=== PATIENT | female | born 2000 | race Two or more races ===

== ENCOUNTER 2025-03-13 17:56 | Emergency (ER) | payer MEDICAID, SELFPAY ==
[2025-03-13 19:06] VITALS: BP 105/68; PULSE 67; RESP 18; TEMP 37.1; O2SAT 99; BMI 33.5
--- NOTE | 2025-03-13 19:11 | XR_ITS ---
Examination: Complete OB ultrasound, less than 14 weeks, transabdominal Date and time of exam: March 13, 2025, 1929 hours INDICATIONS: Vaginal bleeding beginning 1 day ago Technique: Obstetrical ultrasound images less than 14 weeks performed via transabdominal imaging Findings: A normal shaped single intrauterine gestation is present in the uterus. CRL 0.7 cm corresponds to 6 weeks 4 days gestational age Cardiac motion 123 bpm Ultrasonographic survey of visible and placental structures unremarkable. Amniotic fluid volume appears appropriate for this estimated gestational age. Right ovary 5.5 cm arterial flow 4.3 cm cyst Left ovary 3.2 cm arterial flow IMPRESSION: Viable intrauterine gestation 6 weeks 4 days.
--- NOTE | 2025-03-13 19:16 | EDNOTE_ITS ---
ED Female Urogenital RME/HPI General Chief complaint: Urogenital-Female Stated complaint: VAGINAL BLEEDING, + PREG Time Seen by Provider: 03/13/25 19:04 Arrival date/time: 03/13/25 17:56 25-year-old female G2, P1 approximately 8 weeks gestation reports with complaints of vaginal bleeding x 1 day. Patient denies any dysuria urinary urgency or frequency fever chills nausea vomiting or trauma. Patient states that she has not been evaluated by APPRENTICE [facility]ERAL DIRECTOR as of yet. Patient reports last the child was born full-term but with multiple complications Limitations: no limitations Related Data Allergies Allergy/AdvReac Type Severity Reaction Status Date / Time No Known Allergies Allergy Verified 03/13/25 17:58 Review of Systems Constitutional Constitutional: Denies chills, Denies fever(s) and Denies headache(s) ENT Ears, Nose, Mouth, and Throat: Denies dizziness and Denies headache(s) Gastrointestinal Gastrointestinal: Denies nausea and Denies vomiting Genitourinary Genitourinary: Reports abnormal vaginal bleeding, Denies difficulty voiding and Denies dysuria Musculoskeletal Musculoskeletal: Denies back pain and Denies myalgias Integumentary/Breasts Skin/Breast: Denies rash and Denies unusual bruising Neurologic Neurologic: Denies dizziness and Denies headache(s) Past Medical History Social History SMOKING STATUS: Never smoker ED Exam General Limitations: Present no limitations General appearance: Present alert and in no apparent distress Abdominal Exam Abdominal exam: Present soft and normal bowel sounds External exam: Present normal external exam; Absent erythema Speculum exam: Present normal speculum exam, vaginal discharge (Scant clear discharge) and vaginal bleeding (Scant) Bimanual exam: Present normal bimanual exam; Absent cervical motion tenderness, adnexal tenderness or adnexal mass Extremities Exam Extremities exam: Present normal inspection and full ROM Back Exam Back exam: Present normal inspection and full ROM Neurological Exam Neurological exam: Present alert, oriented X3 and CN II-XII intact Psychiatric Psychiatric exam: Present normal affect and normal mood Skin Skin exam: Present warm, dry, intact and normal color Course Course Course Narrative: 25-year-old female, , approximately 6 weeks gestation, presents with vaginal bleeding. An ultrasound confirms a viable intrauterine at 6 weeks and 4 days, and her beta-hCG level is over 7,000. A urine analysis shows possible evidence of acute cystitis; however, the patient is asymptomatic, and the urine sample may have been contaminated due to collection technique. Therefore, I will not initiate treatment for acute cystitis at this time. The patient has been informed, and a urine culture is pending. If the culture is positive, she will be notified and treatment will begin. She has been advised to follow up with her primary care provider or [facility] as needed, or if symptoms arise. Quality Measures none Orders Category Date Time Status Pelvic Exam X1 Care 03/13/25 19:11 Active US OB <= 14 weeks fetus Stat Exams 03/13/25 19:11 Completed Bacterial Vaginal Panel Stat Lab 03/13/25 20:13 Received Beta HCG,Quantitative Stat Lab 03/13/25 19:56 Completed Chlamydia/GC/TV - PCR Stat Lab 03/13/25 21:17 Received UA, C/S IF [Urinalysis, C/S if Indicated] Stat Lab 03/13/25 21:17 Completed Urine Culture Stat Lab 03/13/25 21:17 Received Vital Signs Vital signs: Vital Signs Temperature 98.8 F 03/13/25 19:06 Pulse Rate 67 03/13/25 19:06 Respiratory Rate 18 03/13/25 19:06 Blood Pressure 105/68 03/13/25 19:06 Pulse Oximetry (%) 99 03/13/25 19:06 Oxygen Delivery Method Room Air 03/13/25 19:06 Urogenital - Female Patient data External records reviewed:: None Clinical information provided by:: patient Social determinants that could affect healthcare access:: none Patient has the following chronic illnesses:: none How is presenting disease/condition affected by chronic disease/condition?: no chronic disease Evaluation data The following diagnostics were reviewed and interpreted by me:: lab results and radiology exam(s) Lab and/or radiology exams considered but not ordered:: none Interpretation Summary: Viable intrauterine of 6-week 4-day gestation Medications / Prescriptions Medications or Prescriptions considered but not ordered:: none Medication administrations:: none Consultations Consultation(s) initiated? (list below): No Diagnosis Urogenital Female Differential Diagnosis: other (Threatened versus implantation versus infection) Most likely diagnosis given after review of the tests above:: Implantation of bleeding Admission Indicated Admission indicated?: not indicated Admission Request Was there a request for admission?: No Disposition Plan Disposition Plan: Discharge Discharge Attestation Discharge Attestation: The patient and all family members were given an opportunity to ask questions and understood the discharge instructions. Discharge instructions specifically effects, indications for sooner follow up or return to the emergency department, and the expected course of current diagnosis. Patient condition: Stable Discharge Plan Plan Patient Disposition: HOME (Self Care) Prescriptions/Referrals Referrals: Joaquin Carter MD [Primary Care Provider, Family Practice] - In 1 week Problem List Clinical Impression: Vaginal bleeding during Patient/Caregiver Discharge Instructions Discharge Activity: activity as tolerated Education Materials: Bleeding During Early Additional Instructions: Follow-up with your APPRENTICE FUNERAL DIRECTOR in 24 to 48 hours for repeat blood labs Print Language: English Stand Alone Forms: [employer]ra Award Info., Patient Portal Info Letter
[2025-03-13 21:26] LABS: Collection Type, Urine Clean Catch
[2025-03-13 21:33] LABS: Bilirubin,Urine Negative (Negative); Blood,Urine 3+ (Negative); Clarity,Urine Clear (Clear/Hazy); Color,Urine Yellow (Lt Yel-Yel); Culture Indicated,Urine Yes; Glucose, Urine Negative (Negative); Ketones,Urine Negative (Negative); Leukocyte Esterase,Urine Positive (Negative); Nitrite,Urine Negative (Negative); PH,Urine 5.5 (5.0-7.0); Protein,Urine Trace (Neg - Trace); RBC,Urine 10 /hpf (0-3); Specific Gravity,Urine 1.029 (1.001-1.035); Squamous Epithelial Cell,Urine 6 /hpf (0-5); Urobilinogen,Urine Negative mg/dL (0.0-1.0); WBC,Urine 13 /hpf (0-5)
[2025-03-13 22:53] VITALS: BP 118/76; PULSE 76; RESP 18; TEMP 36.8; O2SAT 98
[2025-03-14 13:56] LABS: BVAG Candida Positive (Negative); Bacterial Vaginosis Markers Positive (Negative); Candida glabrata Negative (Negative); Candida krusei PCR Negative (Negative); Trichomonas Negative (Negative)
[2025-03-14 14:05] LABS: Chlamydia trachomatis PCR Negative (Not Detect); Neisseria Gonorrhoeae DNA PCR Negative (Not Detect); Trichomonas Negative (Negative)
== END 2025-03-13 22:54 | disposition home or self-care (01) ==
PROVIDERS: Physician Assistant; Emergency Provider Emergency Medicine; PCP Family Medicine
DX: O20.9 Hemorrhage in early pregnancy, unspecified (principal); Z3A.08 8 weeks gestation of pregnancy
CPT/HCPCS: 36415; 76801; 81001; 81514; 84702; 87086; 87491; 87591; 87661; 99283